=== PATIENT | female | born 1935 | race Caucasian/White ===

== ENCOUNTER 2016-09-22 16:22 | Inpatient (IN) | payer MEDICARE, BC ==
[2016-09-22] VITALS (9 sets, daily range): BP systolic 36–82; BP diastolic 24–71; PULSE 101–150; RESP 14–34; Wt 50.0 kg
[~2016-09-22] VITALS: Wt 50.0 kg
[2016-09-22] MEDS ORDERED: NITROGLYCERIN 2% 1 GM OINT PKT TD STA (16:34)
[2016-09-22 16:55] LABS: ADD SCAN DIFF NO
[2016-09-22] MEDS ORDERED: ASPIRIN 300 MG SUPP PR ONE (17:00)
[2016-09-22] MEDS ORDERED: NITROGLYCERIN (SL) 0.4 MG TAB SL PRN (17:00)
[2016-09-22] MEDS ORDERED: NITROGLYCERIN (IC) 100 MCG/ML INJ ONE (17:08)
[2016-09-22] MEDS ORDERED: IODIXANOL LOCM 100 ML BTL ONE ×2 (17:08→20:23)
[2016-09-22] MEDS ORDERED: VERAPAMIL 5 MG INJ ONE (17:08)
[2016-09-22] MEDS ORDERED: HEPARIN 1000 UNITS/ML 10 ML INJ ONE (17:08)
[2016-09-22] MEDS ORDERED: LIDOCAINE 1% (MDV) 20 ML INJ ONE (17:08)
[2016-09-22 17:09] LABS: HEMATOCRIT 35.6 % (37.0-47.0); HEMOGLOBIN 12.2 g/dl (12.0-16.0); MEAN CORPUSCULAR HEMOGLOBIN 31.4 pg (29.0-33.0); MEAN CORPUSCULAR HGB CONC 34.3 g/dl (32.0-37.0); MEAN CORPUSCULAR VOLUME 91.8 fl (82.0-101.0); MEAN PLATELET VOLUME 11.5 fl (7.4-10.4); PLATELET COUNT 310 10^3/UL (140-415); RED BLOOD COUNT 3.88 10^6/ul (4.20-5.40); RED CELL DISTRIBUTION WIDTH 13.3 % (11.5-14.5); WHITE BLOOD COUNT 16.4 10^3/ul (4.8-10.8)
--- NOTE | 2016-09-22 17:13 | RADRPT ---
PROCEDURE: XR Chest. CLINICAL INDICATION: Chest pain. Code STEMI. TECHNIQUE: Single frontal view. COMPARISON: None. FINDINGS: The lungs are clear. The heart size is normal. There is calcification in the aorta consistent with atherosclerosis. There is no pleural effusion. There is no pneumothorax. IMPRESSION: 1. Atherosclerosis. 2. Otherwise normal chest radiograph. RPTAT: QQ .Gael Wesley MD, MD Date Time Electronically viewed and signed by .Gael Wesley MD, MD on 09/22/2016 17:13 .R/
[2016-09-22 17:14] LABS: CALCIUM 9.1 mg/dl (8.4-10.2); CREATININE 0.91 mg/dl (0.44-1.00); INR 1.06; PARTIAL THROMBOPLASTIN TIME 21.1 Sec (25.0-35.0); POTASSIUM 4.7 mmol/L (3.5-5.1); PROTIME 13.8 Sec (12.2-14.2); PT RATIO 1.1
[2016-09-22] MEDS ORDERED: FENTAnyl 50 MCG/ML VIAL ONE (17:20)
[2016-09-22] MEDS ORDERED: MIDAZOLAM 1 MG/ML 2 ML INJ ONE (17:20)
[2016-09-22] MEDS ORDERED: BISACODYL 10 MG SUPP PR PRN (17:30)
[2016-09-22] MEDS ORDERED: HYDROCODONE/APAP (5/325) TAB PO PRN (17:30)
[2016-09-22] MEDS ORDERED: NACL 0.9% 3 ML SYG IV SCH (17:30)
[2016-09-22] MEDS ORDERED: DOCUSATE SODIUM 100 MG CAP PO PRN (17:30)
[2016-09-22] MEDS ORDERED: ACETAMINOPHEN 325 MG TAB PO PRN (17:30)
[2016-09-22 17:33] LABS: TROPONIN-I 4.7 ng/ml (0.00-0.12)
--- NOTE | 2016-09-22 18:18 | ERA ---
ER Documentation Chief Complaint Date/Time DATE: 09/22/16 TIME: 18:12 Chief Complaint weak, sent by pmd for abn ekg HPI Patient is an 81-year-old female with no medical problems per family who presents with chest pain and weakness. The patient was seen by her mother Dr. Gonzalez in the office who did an EKG that was concerning and the patient was sent to the emergency department. The patient was brought in by the family member and not by ambulance. The patient is complaining of chest pain and nausea. The symptoms started on Tuesday. The pain was coming and going. The patient has not received aspirin yet today. The patient's primary doctor is Dr. Combs. ROS All systems reviewed and are negative except as per history of present illness. Allergies Allergies: Coded Allergies: No Known Allergies (Verified Allergy, Unknown, 09/22/16) PMhx/Soc Medical and Surgical Hx: pt denies Surgical Hx Hx Miscellaneous Medical Probl: Yes (ATAXIA ) Hx Alcohol Use: No Hx Substance Use: No Hx Tobacco Use: No Smoking Status: Never smoker FmHx Family History: No coronary disease Physical Exam Vitals Vital Signs Date Time Temp Pulse Resp B/P Pulse Ox O2 Delivery O2 Flow Rate FiO2 09/22/16 16:33 97.0 110 20 99/57 96 Physical Exam Const: Moderate distress Head: Atraumatic Eyes: Normal Conjunctiva ENT: Normal External Ears, Nose and Mouth. Neck: Full range of motion..~ No meningismus. Resp: Clear to auscultation bilaterally Cardio: Regular rate and rhythm, no murmurs Abd: Soft, non tender, non distended. Normal bowel sounds Skin: Pale skin Back: No midline or flank tenderness Ext: No cyanosis, or edema Neur: Awake but confused Result Diagram: 09/22/16 1640 09/22/16 1640 Results 24 hrs Laboratory Tests Test 09/22/16 16:40 White Blood Count 16.410^3/ul Red Blood Count 3.8810^6/ul Hemoglobin 12.2g/dl Hematocrit 35.6% Mean Corpuscular Volume 91.8fl Mean Corpuscular Hemoglobin 31.4pg Mean Corpuscular Hemoglobin Concent 34.3g/dl Red Cell Distribution Width 13.3% Platelet Count 75481^3/UL Mean Platelet Volume 11.5fl Prothrombin Time 13.8Sec Prothrombin Time Ratio 1.1 INR International Normalized Ratio 1.06 Activated Partial Thromboplast Time 21.1Sec Sodium Level 135mmol/L Potassium Level 4.7mmol/L Chloride Level 106mmol/L Carbon Dioxide Level 18mmol/L Anion Gap 16 Blood Urea Nitrogen 18mg/dl Creatinine 0.91mg/dl Glucose Level 298mg/dl Calcium Level 9.1mg/dl Troponin I 4.700ng/ml Current Medications Medications (Trade) Dose Ordered Sig/Jose Route PRN Reason Start Time Stop Time Status Last Admin Dose Admin Nitroglycerin (Nitroglycerin 2% Oint) 1 inch ONCE STAT TD 09/22/16 16:34 09/22/16 16:36 DC 09/22/16 16:48 Nitroglycerin (Nitroglycerin (Sl Tab) 0.4 Mg) 1 tab Q5M UP TO 3 DOSES PRN SL CHEST PAIN 09/22/16 17:00 Aspirin (Aspirin) 300 mg ONCE ONCE NC 09/22/16 17:00 09/22/16 17:01 DC 09/22/16 16:48 Heparin Sodium (Porcine) (Heparin (1000 Units/ml)) 10,000 unit STK-MED ONCE .ROUTE 09/22/16 17:08 09/22/16 17:09 DC Lidocaine (Xylocaine 1% (Mdv) 20 ml) 20 ml STK-MED ONCE .ROUTE 09/22/16 17:08 09/22/16 17:09 DC Iodixanol 100 ml 100 ml STK-MED ONCE .ROUTE 09/22/16 17:08 09/22/16 17:09 DC Heparin Sodium/ Sodium Chloride (Heparin 1000 Units/NS (A-Line)) 1,500 ml @ ud STK-MED ONCE .ROUTE 09/22/16 17:08 09/22/16 17:09 DC Verapamil HCl (Verapamil) 5 mg STK-MED ONCE .ROUTE 09/22/16 17:08 09/22/16 17:09 DC Nitroglycerin (Nitroglycerin (Intracoronary)) 1,000 mcg STK-MED ONCE .ROUTE 09/22/16 17:08 09/22/16 17:09 DC Procedures/MDM EKG read by me: Rate/Rhythm: Sinus tachycardia at a rate of 108 Intervals: Normal Impression: Sinus tachycardia with ST elevations in the anterior leads V2 and V3 concerning for acute STEMI Chest x-ray negative for pneumonia or pneumothorax per radiology. Patient is an 81-year-old female presents with what appears to be an acute STEMI. I reviewed EKGs from April and from today from the office and the EKG done today in the office was concerning for acute STEMI with tombstones in the anterior leads. EKG in the emergency department here done at [address] elevations in leads V2 and V3 concerning for STEMI. I I called a code STEMI at 1634 immediately. I spoke with Dr. Carrillo the archeology professor radiation therapy technician at 1642 and we agreed that going to the cardiac Knockout Machine Operator was the best plan. The patient went to the cardiac Knockout Machine Operator at 1650. Aspirin was given per rectum given the patient's confused mental status. I spoke with Dr. Combs the patient' s primary doctor for admission to the intensive care unit following cardiac catheterization. I doubt pneumonia, pneumothorax, pulmonary embolism, or aortic dissection. Critical Care: Time: 35 minutes excluding all billable procedures. Treatments/Evaluations: Close monitoring and treatment of unstable vital signs, cardiorespiratory, and neurologic status, while maintaining tight balance of fluid, respiratory, and cardiac interventions. Departure Diagnosis: Primary Impression: STEMI (ST elevation myocardial infarction) Qualified Code: I21.3 - ST elevation myocardial infarction (STEMI), unspecified artery Additional Impression: Acute weakness Condition: Critical TANIA ARTEAGA MD Sep 22, 2016 18:18
[2016-09-22 18:37] LABS: LYMPHOCYTES # 1.5 10^3/ul (0.8-2.9); MONOCYTE # 0.3 10^3/ul (0.3-0.9); NEUTROPHIL # 14.6 10^3/ul (1.6-7.5)
[2016-09-22 18:39] LABS: BURR CELLS 2+
[2016-09-22] MEDS ORDERED: niCARdipine 25 MG INJ ONE (18:51)
[2016-09-22] MEDS ORDERED: TICAGRELOR 90 MG TABLET ONE (19:06)
--- NOTE | 2016-09-22 19:21 | CONS ---
Date/Time of Note Date/Time of Note DATE: 09/22/16 TIME: 19:10 Assessment/Plan Assessment/Plan Chief Complaint/Hosp Course 81 yo with STEMI Problems: Additional Assessment/Plan Impression: STEMI of anterior wall history of hypertension and ataxia Recommendations: ICU care, probable d/c on Tuesday am Echo in am Asa, Brilinta, atorvastatin Hold atenolol for now and will give metoprolol as bp comes up for post mi heart rate control Lifestyle recommendations including healthy diet and mobilizing more will be given once patient more awake tomorrow Consultation Date/Type/Reason Admit Date/Time 09/22/2016 Date of Consultation: Sep 22, 2016 Type of Consultation: cardiology Reason for Consultation STEMI Referring Provider: TANIA ARTEAGA MD Hx of Present Illness 81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 EKG in the ER demonstrated ST elevations in V2-V6, depression in AVR, patient brought emergently to the cardiac catheterization laboratory where she was found to have a completely occluded LAD in the proximal portion, underwent successful balloon angioplasty and placement of a Synergy 2.75x20 mm stent. At the conclusion of the procedure she was pain-free. Course of the procedure complicated by extremely difficult access, due to small vessels. Constitutional: improved, no complaints Eyes: no complaints ENT: other (hoarse voice) Respiratory: no complaints Cardiovascular: chest pain Gastrointestinal: no complaints Genitourinary: no complaints Musculoskeletal: no complaints Skin: no complaints Neurologic: other (chronic ataxia) Endocrine: no complaints Psychological: nl mood/affect, no complaints Past Medical History Medical History: hypertension, other (ataxia) Past Surgical History Past Surgical Hx: no surgical history Family History Significant Family History: no pertinent family hx (negative for premature cad) Social History Alcohol Use: none Smoking Status: Never smoker Exam/Review of Systems Vital Signs Vitals Vital Signs Date Time Temp Pulse Resp B/P Pulse Ox O2 Delivery O2 Flow Rate FiO2 09/22/16 16:33 97.0 110 20 99/57 96 Exam Constitutional: alert, oriented, well developed Psych: nl mood/affect, no complaints Head: atraumatic, normocephalic Eyes: EOMI, PERRL, nl conjunctiva, nl lids, nl sclera ENMT: nl external ears & nose, nl lips & teeth, nl nasal mucosa & septum Neck: No jvd Respiratory: clear to auscultation (anteriorly), normal air movement Cardiovascular: nl pulses, regular rate and rhythm Gastrointestinal: nl liver, spleen, non-tender, soft Musculoskeletal: nl extremities to inspection Extremities: No normal pulses (diminished femoral pulses and radial pulses) Neurological: nl mental status, nl strength, No nl speech (soft muffled speech) Skin: nl turgor, No rash or lesions Results Result Diagram: 09/22/16 1640 09/22/16 1640 Results 24 hrs Laboratory Tests Test 09/22/16 16:40 White Blood Count 16.4 H Red Blood Count 3.88 L Hemoglobin 12.2 Hematocrit 35.6 L Mean Corpuscular Volume 91.8 Mean Corpuscular Hemoglobin 31.4 Mean Corpuscular Hemoglobin Concent 34.3 Red Cell Distribution Width 13.3 Platelet Count 310 Mean Platelet Volume 11.5 H Neutrophils % 89.0 H Lymphocytes % 9.0 L Monocytes % 2.0 Neutrophils # 14.6 H Lymphocytes # 1.5 Monocytes # 0.3 Prothrombin Time 13.8 Prothrombin Time Ratio 1.1 INR International Normalized Ratio 1.06 Activated Partial Thromboplast Time 21.1 L Sodium Level 135 Potassium Level 4.7 Chloride Level 106 Carbon Dioxide Level 18 L Anion Gap 16 Blood Urea Nitrogen 18 Creatinine 0.91 Glucose Level 298 H Calcium Level 9.1 Troponin I 4.700 *H Medications Medications Current Medications Calcium Carbonate (Tums) 500 mg QID PO ; Start 09/22/16 at 21:00 Aspirin (Aspirin) 81 mg DAILY PO ; Start 09/24/16 at 09:00 Clopidogrel Bisulfate (plaVIX) 75 mg DAILY PO ; Start 09/24/16 at 09:00 Acetaminophen (Tylenol Tab) 650 mg Q6H PRN PO PAIN LEVEL 1-3 OR FEVER; Start at 17:30 Acetaminophen/ Hydrocodone Bitart ([place] (5/325)) 1 tab Q6H PRN PO MODERATE PAIN LEVEL 4-6; Start 09/22/16 at 17:30 Docusate Sodium (Colace) 100 mg Q12H PRN PO CONSTIPATION; Start 09/22/16 at 17: 30 Bisacodyl (Dulcolax Supp) 10 mg DAILY PRN NC CONSTIPATION; Start 09/22/16 at 17 :30 Famotidine (Pepcid) 20 mg Q12 PO ; Start 09/22/16 at 21:00 Methimazole (Tapazole) 5 mg QAM PO ; Start 09/23/16 at 09:00 Escitalopram Oxalate (Lexapro) 10 mg QAM PO ; Start 09/23/16 at 09:00 Acetylcysteine (Nac) 1,200 mg BID PO ; Start 09/22/16 at 21:00 Procedures Procedures See cath report for full details, but LAD completely occluded proximally, at the end of the case SHAW III flow and 2.75x20 mm Synergy stent placed. RADHA MADRID Sep 22, 2016 19:20
--- NOTE | 2016-09-22 19:28 | EN ---
Date/Time of Note Date/Time of Note DATE: 09/22/16 TIME: 19:21 Event Note Cardiology Cardiology Event Note Cardiac Catheterization Report Date of Procedure: September 22, 2016 Pre-Procedure Dx: STEMI of the anterior wall Post-Procedure Dx: STEMI due to occlusion of proximal LAD Procedures performed: Coronary angiography, left heart catheterization, angioplasty and stent placement to the proximal LAD Findings: Left main normal LAD is completely occluded after the takeoff of a first diagonal vessel. SHAW 0 flow. Lesion length 14 mm LCX with mild luminal irregularities, and one major OM vessel The right coronary artery is dominant with mild luminal irregularities Indications: Patient presented with chest pain, EKG showed ST elevations in anterior leads Informed consent obtained. Patient received sedation with versed and fentanyl. Access quite difficult, tried R and L radial, R and L femoral, ultimately using micropuncture accessed the L common femoral artery. A J wire was utilized to advance a JL4 and JR4 which engaged the LM and RCA. Images taken with injection of contrast. It was decided to intervene on the LAD. An FL 3.5 guide catheter was used. ACT drawn to ascertain that it was greater than 250, a total of 6000 u of heparin given. A Luge wire passed through the lesion, and a 1.5 x 12 mm balloon inflated within the lesion, followed by placement of a 2.75 x 20 mm Synergy drug-eluting stent. Nitroglycerin and cardene given intracoronary to improve distal flow. Images obtained including a wire out shot demonstrating good apposition of the stent and shaw 3 flow. All catheter exchanges done over a 260-cm J wire. At the end of the case, angiography performed through the sheath demonstrating that the sheath was in the left common femoral, and an angioseal was placed. Brilinta 180 mg was given, she received aspirin in the ER. Discussion: STEMI due to occlusion of the prox/mid LAD. Drug eluting stent placed. Plan is for admission, and likely discharge on Sunday 09/24. RADHA MADRID Sep 22, 2016 19:28
[2016-09-22] MEDS ORDERED: IOHEXOL 350MG/ML 50 ML BTL ONE (20:24)
[2016-09-22] MEDS ORDERED: ACETYLCYSTEINE 600 MG CAP PO SCH (21:00)
[2016-09-22] MEDS ORDERED: ATORVASTATIN 80 MG TAB PO SCH (21:00)
[2016-09-22] MEDS ORDERED: CALCIUM CARBONATE 500 MG CHEW TAB PO SCH (21:00)
[2016-09-22] MEDS ORDERED: FAMOTIDINE 20 MG TAB PO SCH (21:00)
[2016-09-22] MEDS ORDERED: PHENYLephrine 20MG IN 250 ML 250 ML ONE (21:23)
[2016-09-22] MEDS ORDERED: SOD CHLORIDE 0.9% 500 ML IV ONE ×2 (21:30→22:30)
[2016-09-22] MEDS ORDERED: PHENYLephrine 20MG IN 250 ML 250 ML IV SCH (21:30)
[2016-09-22] MEDS ORDERED: ZOLPIDEM 5 MG TAB PO PRN (22:30)
[2016-09-22] MEDS ORDERED: NORepinephrine 8MG/250 ML (PMX 250 ML ONE (22:53)
[2016-09-22 23:18] LABS: Allen Test ACCEPTAB; Arterial COHb 0.2 % (0.0-3.0); MODE MASK - NRB
[2016-09-22] MEDS ORDERED: FUROSEMIDE 40 MG INJ ONE (23:20)
[2016-09-22 23:35] LABS: AADO2 Arterial 434.7 mmHg (7.0-24.0); Arterial Base Excess -17.4 mmol/L (-3.0-3); Arterial Fraction of Oxyhgb 98.5 % (93.0-99.0); Arterial HCO3 7.5 mmol/L (22.0-26.0); Arterial MetHb 0.3 % (0.0-1.5); Arterial Total Hemglobin 11.7 g/dl (12.0-18.0)
[2016-09-23] VITALS (12 sets, daily range): BP systolic 30–82; BP diastolic 12–61; PULSE 22–116; RESP 20–30
[2016-09-23] MEDS ORDERED: FUROSEMIDE 40 MG INJ IV ONE
[2016-09-23] MEDS ORDERED: VASOPRESSIN 60 UNIT in DEXTROSE 5% 57 ML IV SCH ×2
[2016-09-23 00:18] LABS: TROPONIN-I 91.3 ng/ml (0.00-0.12)
[2016-09-23] MEDS ORDERED: NA BICARBONATE 8.4% 50 ML SYG ONE ×2 (00:18)
[2016-09-23] MEDS ORDERED: PHENYLephrine 160 MG in DEXTROSE 5% 484 ML IV SCH (00:30)
[2016-09-23] MEDS ORDERED: NORepinephrine 32 MG in DEXTROSE 5% 218 ML IV SCH (00:30)
[2016-09-23 01:21] LABS: AADO2 Arterial 228.9 mmHg (7.0-24.0); Allen Test ACCEPTAB; Arterial Base Excess -17.9 mmol/L (-3.0-3); Arterial COHb 0.1 % (0.0-3.0); Arterial Fraction of Oxyhgb 98.7 % (93.0-99.0); Arterial HCO3 7.7 mmol/L (22.0-26.0); Arterial MetHb 0.3 % (0.0-1.5); Arterial Total Hemglobin 11.2 g/dl (12.0-18.0); Blood Gas Low PEEP Setting 0 cmH2O; MODE VENT - AC
[2016-09-23] MEDS ORDERED: SODIUM BICARBONATE (IV ADD) 100 MEQ in DEXTROSE 5% 900 ML IV SCH (01:30)
[2016-09-23] MEDS ORDERED: NA BICARBONATE 8.4% 50 ML SYG IV ONE ×2 (02:00)
--- NOTE | 2016-09-23 02:39 | EN ---
Date/Time of Note Date/Time of Note DATE: 09/23/16 TIME: 02:29 ER Progress Note NICU called to the patient who went to the Hydraulic Chair Assembler this morning for a STEMI and had a complete LAD with stent placement is having hypotension even after being on 2 separate blood pressure support medications. He also said that she is having some difficulty breathing with the bad ABG and the position he was admitted the patient is requesting intubation and central line. On arrival the patient has some mild to moderate increased work of breathing. She is awake but somewhat conscious with tangential speech. Blood pressure is 56/31 Const: Well-developed, well-nourished Head: Atraumatic, normocephalic Eyes: Normal Conjunctiva, PERRLA, EOMI, normal sclera, no nystagmus ENT: Normal External Ears, Nose and Mouth, moist mucus membranes. Neck: Full range of motion. No meningismus, no lymphadenopathy. Resp: [Mild to moderate increased work of breathing with diffuse rhonchi Cardio: Tachycardia heart rate 127, no murmurs, S1 S2 present Abd: Soft, non tender x 4, non distended Skin: No petechiae or rashes, no ecchymosis , no maculopapular rash Back: Not examined Ext: [No cyanosis, or edema, normal inspection, Neur: Awake some unconscious moves all 4, sensation intact x 4, no focal findings, Psych: [Unable to obtain Endotracheal Intubation by me: Pre assessment performed. See preceding note for details. Pre-oxygenation performed with 100% oxygen RSI: Performed w/o complication or hypoxic events. Medications as ordered. Blade: Mac 4 ET Tube: 7.0 cm Depth: 22 cm at the lip Intubation confirmed by colorimetric CO2, equal breath sounds, quiet over the stomach. After etomidate was given and then succinylcholine was given. The family had come in and requested the patient not be intubated. I informed him that the patient had just received succinylcholine and they put informing to go ahead and proceed with intubation Central Line Placement by me: Patient consented, sterilely draped, full prep, gown, glove, mask, time out performed. Anesthesia: None Location: Right femoral Device: Multiple lumen Technique: Seldinger technique Results: Multiple attempts were made to establish a central line in the right femoral groin however there is no success on finding the vein. Family informing that the route sales associate had a very difficult time finding the femoral artery even to do the cardiac cath today. [ED Ultrasound: Unable to distinctly find the femoral vein Central Line Placement by me#2: Patient consented, sterilely draped, full prep, gown, glove, mask, time out performed. Anesthesia: None Location: Left IJ Device: Multiple lumen Technique: Seldinger technique. Results: Multiple attempts were made in the left IJ. There was a flash of venous blood on several occasions however the guidewire would not thread into the vein. The patient is likely to clamp down from being hypotensive [ED Ultrasound: Used to find the internal jugular vein I had the nurse start a third peripheral line and having the third blood pressure medication. The patient has 3 peripheral IVs with each a blood pressure medication hanging. Patient's blood pressure is now 86/[address]Eghbalia jean-baptiste vascular surgery and told him of the situation. He said he is happy to come and place a central line. Appreciate his gracious support. Critical Care Time: 55 minutes Treatments/Evaluations: Close monitoring and treatment of unstable vital signs, cardiorespiratory, and neurologic status, while maintaining tight balance of fluid, respiratory, and cardiac interventions. This time includes discussing the case with the patient and the patient's family. This time does not include all procedures stated elsewhere in this record. This time also includes reviewing old records, labs and radiological studies. This time includes examining and re-examining the patient. Additionally, this time also includes arranging care with admitting and consulting physicians. Diagnosis: Hypotension, respiratory failure Condition: Critical The family has made the patient a DNR YESSENIA LOMELI DO Sep 23, 2016 02:39
--- NOTE | 2016-09-23 02:45 | OPR ---
Date/Time of Note Date/Time of Note DATE: 09/23/16 TIME: 02:42 Operative Report Free Text/Dictation DATE OF OPERATION: 09/23/2016 SURGEON: Philip Gomez MD PREOPERATIVE DIAGNOSIS: shock and VT POSTOPERATIVE DIAGNOSIS: same ANESTHESIA: Local BLOOD LOSS: minimal COMPLICATIONS: None. ACCESS: Right common femoral vein INDICATIONS: This is a 81 year-old female with VT and shock requiring resuscitation. Patient and family have been informed of the alternatives, risks , and benefits. Risks including but not limited to bleeding, thrombosis, embolization, myocardial infarction, , device malfunction, infection, pneumothorax, nephrotoxicity and patient has agreed to proceed. PROCEDURE: 1. Ultrasound guided access of right common femoral vein 2. Emergent Right common femoral vein central catheter placement 3. Emergent left radial artery arterial catheter placement DESCRIPTION: The patient was in supine position in her ICU bed. Bed was placed in slight Trendelenburg position and the groin was prepped and draped with sterile technique. The central catheter was flushed with heparin to ensure function of each port. Landmarks were identified and the skin entry site was chosen using ultrasound guidance. The skin And subcutaneous tissue were anesthetized with 1% lidocaine. The vein was then located with a needle with a 10 mL syringe using ultrasound guidance. The needle was then directed towards the vein and was entered. The needle position was secured and syringe was removed. The hub was occluded to prevent venous air embolus. The guidewire was passed easily and the needle was removed while the wire was held in place. A small incision was then made at the point of the wire entry. The dilator was placed over the wire and the tract gently dilated. The catheter was fed over the wire, ensuring the wire exited from the port before advancing the catheter. The catheter was inserted to the desired depth and the wire removed. Each port was aspirated to ensure adequate blood flow and then flushed with heparinized saline solution. The catheter was secured in place with a 2-0 nylon suture and a sterile dressing was applied. The patient tolerated the procedure well and was in stable condition. All instrument, sponge and needle counts were correct 2. PHILIP GOMEZ MD Sep 23, 2016 02:45
--- NOTE | 2016-09-23 02:49 | RADRPT ---
PROCEDURE: XR Chest. CLINICAL INDICATION: Post intubation. TECHNIQUE: Single frontal chest x-ray. COMPARISON: 09/22/2016 FINDINGS: Endotracheal tube tip is at the level of the clavicles, 2.2 cm above deborah. Heart is enlarged. Th ere is increased bibasilar atelectasis.. There is moderate hypoventilation. There is no congestive heart failure.. . There is no pleural effusion. There is no pneumothorax. The osseous structures are unremarkable. IMPRESSION: Endotracheal tube tip at the level of deborah. Slight increase in bibasilar atelectasis. Otherwise no change. RPTAT: HMVK .Russell Cortez MD, MD Date Time Electronically viewed and signed by .Russell Cortez MD, on 09/23/2016 02:49 .K/
[2016-09-23] MEDS ORDERED: LACTATED RINGER'S 250 ML IV ONE (03:30)
[2016-09-23] MEDS ORDERED: DOPamine 1,600 MG in DEXTROSE 5% 210 ML IV SCH (03:30)
[2016-09-23] MEDS ORDERED: DOPamine-D5W 1.6 MG/ML 250 ML ONE (03:47)
--- NOTE | 2016-09-23 04:25 | EN ---
Date/Time of Note Date/Time of Note DATE: 09/23/16 TIME: 04:19 Event Note Medicine Medicine Event Note Pronouncement Note Patient seen and examined at the bedside. Patient non-responsive to vebral commands. Patient non-responsive to noxious tactile stimuli. Patient non- responsive to vigorous sternal rub. Pupils fixed and non reactive to light bilaterally. Asystole observed on telemetry monitoring at 4:00AM. Patient time of approximately at 4:00AM. Family present at the bedside. Primary care physician aware. DANA DOWELL Sep 23, 2016 04:25
[2016-09-23] MEDS ORDERED: PHENYLephrine 40 MG in DEXTROSE 5% 496 ML IV SCH (07:00)
[2016-09-23] MEDS ORDERED: TICAGRELOR 90 MG TABLET PO SCH (08:00)
[2016-09-23] MEDS ORDERED: ESCITALOPRAM 10 MG TAB PO SCH (09:00)
[2016-09-23] MEDS ORDERED: METHIMAZOLE 5 MG TAB PO SCH (09:00)
--- NOTE | 2016-09-23 10:36 | RADRPT ---
Vent Rate: 100 bpm RR Interval: 0 msec [place] Interval: 134 msec QRS Duration: 76 msec QT Interval: 360 msec QTC Interval: 464 msec P-R-T [place]: 0 - 0 - -51 degrees Normal sinus rhythm Low voltage QRS Anterolateral infarct , possibly acute ACUTE FL Abnormal ECG Electronically Signed By: Christopher Wang [id number]
--- NOTE | 2016-09-23 16:01 | DES ---
Date/Time of Note Date/Time of Note DATE: 09/23/16 TIME: 15:58 Discharge/ Summary Admission/Discharge Info Admit Date/Time Sep 22, 2016 at 20:08 Discharge Date/Time Sep 23, 2016 at 04:00 Final Diagnosis Acute coronary syndrome/STEMI; hypertension; hyperlipidemia; primary cerebellar ataxia; osteoporosis; history of multiple vertebral compression fractures; Graves' disease Preliminary Cause of Acute coronary syndromes/STEMI; cardiopulmonary arrest Hx of Present Illness Otherwise healthy 81-year-old female with no primary cardiac history. She has risk factors of hypertension hyperlipidemia remote history of smoking. No family history no diabetes. No hyperuricemia. Roughly 48 hours prior to admission she had some chest pains which abated. She had lunch with her daughter who is a physician on our staff. Approximately an hour after that she developed more chest pain and came to physician's office. An EKG was there are demonstrate STEMI and she was transported immediately to the emergency room for code STEMI was called. She was taken from the emergency room directly to the cardiac [employer] and had cardiac intervention. Hospital Course 81 yo with STEMI; in the cardiac catheterization lab she had angiography that demonstrated proximal LAD lesion. She had markedly positive troponins at 4 from the emergency room. She had successful balloon angioplasty with stenting. Post procedure she was taken to intensive care unit for aggressive monitoring. Follow-up troponin level was more than 10 times higher. Approximately 6 hours after procedure the patient developed hypotension respiratory distress. She required intubation and multiple pressors. Despite this she at roughly 4 AM. At that time the family had made her DNR. Pending Labs/Cultures Laboratory Tests Test 09/22/16 16:40 09/22/16 18:59 09/22/16 23:00 09/22/16 23:07 White Blood Count 16.410^3/ul (4.8-10.8) Red Blood Count 3.8810^6/ul (4.20-5.40) Hemoglobin 12.2g/dl (12.0-16.0) Hematocrit 35.6% (37.0-47.0) Mean Corpuscular Volume 91.8fl (82.0-101.0) Mean Corpuscular Hemoglobin 31.4pg (29.0-33.0) Mean Corpuscular Hemoglobin Concent 34.3g/dl (32.0-37.0) Red Cell Distribution Width 13.3% (11.5-14.5) Platelet Count 29551^3/UL (140-415) Mean Platelet Volume 11.5fl (7.4-10.4) Neutrophils % 89.0% (39.0-77.0) Lymphocytes % 9.0% (15.0-51.0) Monocytes % 2.0% (0.0-11.0) Neutrophils # 14.610^3/ul (1.6-7.5) Lymphocytes # 1.510^3/ul (0.8-2.9) Monocytes # 0.310^3/ul (0.3-0.9) Prothrombin Time 13.8Sec (12.2-14.2) Prothrombin Time Ratio 1.1 INR International Normalized Ratio 1.06 Activated Partial Thromboplast Time 21.1Sec (25.0-35.0) Sodium Level 135mmol/L (135-144) Potassium Level 4.7mmol/L (3.5-5.1) Chloride Level 106mmol/L (97-110) Carbon Dioxide Level 18mmol/L (21-31) Anion Gap 16 (8-16) Blood Urea Nitrogen 18mg/dl (7-20) Creatinine 0.91mg/dl (0.44-1.00) Glucose Level 298mg/dl (70-220) Calcium Level 9.1mg/dl (8.4-10.2) Troponin I 4.700ng/ml (0.00-0.12) 5.530ng/ml (0.00-0.12) 91.300ng/ml (0.00-0.12) Creatine Kinase 1561IU/L (23-200) Creatine Kinase Index 12.2 Creatinine Kinase MB (Mass) 191.00ng/ml (0.0-2.4) Blood Gas Specimen Source Blood arterial Arterial Blood Date Drawn 09/22/2016 11:20:29 PM Arterial Blood pH (Temp corrected) 7.255 (7.350-7.450) Arterial Blood pCO2 (Temp correct) 17.4mmhg (35-45) Arterial Blood pO2 (Temp corrected) 260.9mmHG (80-90.0) Arterial Blood HCO3 7.5mmol/L (22.0-26.0) Arterial Blood Base Excess -17.4mmol/L (-3.0-3) Arterial Blood Oxygen Saturation 99.0mmHG (95.0-100.0) Tano Test ACCEPTAB Arterial Blood Gas Puncture Site Left Radial Arterial Blood Carboxyhemoglobin 0.2% (0.0-3.0) Arterial Blood Methemoglobin 0.3% (0.0-1.5) Blood Gas A-a O2 Differential 434.7mmHg (7.0-24.0) Oxyhemoglobin Percent 98.5% (93.0-99.0) Total Hemoglobin 11.7g/dl (12.0-18.0) Blood Gas Temperature 37.0C Blood Gas Actual Respiration Rate 28 Blood Gas Modality MASK - NRB FiO2 100.0% Blood Gas Critical Value Read Back ABEL RN Blood Gas Notified Whom MA Blood Gas Notified Time 09/22/2016 11:35:20 PM Test 09/23/16 01:00 Blood Gas Specimen Source Blood arterial Arterial Blood Date Drawn 09/23/2016 1:10:16 AM Arterial Blood pH (Temp corrected) 7.226 (7.350-7.450) Arterial Blood pCO2 (Temp correct) 19.0mmhg (35-45) Arterial Blood pO2 (Temp corrected) 465.1mmHG (80-90.0) Arterial Blood HCO3 7.7mmol/L (22.0-26.0) Arterial Blood Base Excess -17.9mmol/L (-3.0-3) Arterial Blood Oxygen Saturation 99.1mmHG (95.0-100.0) Tano Test ACCEPTAB Arterial Blood Gas Puncture Site Left Radial Arterial Blood Carboxyhemoglobin 0.1% (0.0-3.0) Arterial Blood Methemoglobin 0.3% (0.0-1.5) Blood Gas A-a O2 Differential 228.9mmHg (7.0-24.0) Oxyhemoglobin Percent 98.7% (93.0-99.0) Total Hemoglobin 11.2g/dl (12.0-18.0) Blood Gas Temperature 37.0C Blood Gas Respiration Rate 14.0 Blood Gas Actual Respiration Rate 28 Blood Gas Modality VENT - AC FiO2 100.0% Blood Gas Tidal Volume 500.0mL Blood Gas Low PEEP Setting 0cmH2O Blood Gas Critical Value Read Back AALEX RN Blood Gas Notified Whom MA Blood Gas Notified Time 09/23/2016 1:21:12 AM Microbiology Date/Time Source Procedure Growth Status 09/22/16 21:00 Nares MRSA Screen - Preliminary Screening in process Resulted BRIAN JOHNSON MD Sep 23, 2016 16:01
--- NOTE | 2016-09-23 16:06 | HP ---
Date/Time of Note Date/Time of Note DATE: 09/23/16 TIME: 16:01 Assessment/Plan VTE Prophylaxis VTE Prophylaxis Intervention: heparin Lines/Catheters IV Catheter Type (from [facility], [place]): A Line Urinary Cath still in place: Yes Reason Cath still needed: other (indicate) (Immediately post catheterization) Assessment/Plan Chief Complaint/Hosp Course 81 yo with STEMI; in the cardiac catheterization lab she had angiography that demonstrated proximal LAD lesion. She had markedly positive troponins at 4 from the emergency room. She had successful balloon angioplasty with stenting. Post procedure she was taken to intensive care unit for aggressive monitoring. Follow-up troponin level was more than 10 times higher. Approximately 6 hours after procedure the patient developed hypotension respiratory distress. She required intubation and multiple pressors. Despite this she at roughly 4 AM. At that time the family had made her DNR. Problems: (1) STEMI (ST elevation myocardial infarction) Status: Acute Comment: She has had angioplasty and stenting. She will be transferred to the intensive care unit and observe closely. Qualifiers: Involved coronary artery: LAD coronary artery Qualified Code: I21.02 - ST elevation myocardial infarction involving left anterior descending (LAD) coronary artery (2) Graves' disease without crisis Status: Chronic Comment: Well-controlled and euthyroid (3) Osteoporosis Status: Chronic Comment: Noted and stable. She has been through several years of bisphosphonate therapy Qualifiers: Osteoporosis type: age-related Presence of current pathological fracture: without current pathological fracture Qualified Code: M81.0 - Age-related osteoporosis without current pathological fracture (4) Cerebellar ataxia Status: Chronic Comment: Noted her present condition is what her baseline is (5) Essential hypertension Status: Chronic Comment: Continue appropriate therapy (6) Hyperlipidemia Status: Chronic Comment: Continue statin therapy Qualifiers: Hyperlipidemia type: pure hypercholesterolemia Qualified Code: E78.00 - Pure hypercholesterolemia HPI/ROS Admit Date/Time Admit Date/Time 09/22/2016 Hx of Present Illness Otherwise healthy 81-year-old female with no primary cardiac history. She has risk factors of hypertension hyperlipidemia remote history of smoking. No family history no diabetes. No hyperuricemia. Roughly 48 hours prior to admission she had some chest pains which abated. She had lunch with her daughter who is a physician on our staff. Approximately an hour after that she developed more chest pain and came to physician's office. An EKG was there are demonstrate STEMI and she was transported immediately to the emergency room for code STEMI was called. She was taken from the emergency room directly to the cardiac Salesperson [employer] and had cardiac intervention. ROS Eyes: no complaints ENT: other (hoarse voice) Respiratory: no complaints Cardiovascular: chest pain Gastrointestinal: no complaints Genitourinary: no complaints Musculoskeletal: no complaints Skin: no complaints Neurologic: other (chronic ataxia) Psychological: nl mood/affect, no complaints PMH/Family/Social Past Medical History Osteoporosis with multiple vertebral compression fractures; primary cerebellar ataxia; Graves' disease; hypertension; hyperlipidemia; dysthymia; allergic rhinitis; colonic polyposis; history of intravaginal radiation; overactive bladder; Medical History: hypertension, other (ataxia) Past Surgical History Status post appendectomy; status post SPARKLE with BSO; status post anal fissure repair; status post tonsillectomy and adenoidectomy; status post ORIF of a proximal left femur fracture; status post fall with orbital fracture status post ORIF of the left tibial plateau fracture Family History Significant Family History: hypertension, other (Stroke) Social History Born [facility] and raise she has high school education she is and had been living alone she had a significant other who passed 10 days ago she is a retired professional research assistant Alcohol Use: none Smoking Status: Never smoker Drug Use: none Exam/Review of Systems Vital Signs Vitals Vital Signs Date Time Temp Pulse Resp B/P Pulse Ox O2 Delivery O2 Flow Rate FiO2 09/23/16 03:45 22 30/12 40 Nasal Cannula 09/23/16 03:30 20 09/23/16 03:02 50 09/22/16 20:30 98.0 2.0 Intake and Output 09/22/16 09/22/16 09/23/16 15:00 23:00 07:00 Intake Total 255 ml 900.08 ml Output Total 0 ml 150 ml Balance 255 ml 750.08 ml Exam Constitutional: alert, oriented Head: atraumatic, normocephalic Eyes: EOMI, nl conjunctiva, nl lids, nl sclera Neck: non-tender, supple Respiratory: clear to auscultation, normal air movement Cardiovascular: murmurs/extra sounds (She has a new murmur at the left upper sternal border), nl pulses, regular rate and rhythm Gastrointestinal: nl liver, spleen, non-tender, soft Musculoskeletal: nl extremities to inspection, nl gait and stance Labs Result Diagram: 09/22/16 1640 09/22/16 1640 BRIAN JOHNSON MD Sep 23, 2016 16:06
[2016-09-24] MEDS ORDERED: CLOPIDOGREL 75 MG TAB PO SCH (09:00)
[2016-09-24] MEDS ORDERED: ASPIRIN 81 MG TAB PO SCH (09:00)
== END 2016-09-23 04:00 | disposition expired | DRG 247 ==
LOC: E/R 16:22 → SDS 17:15 → CCL 17:15 → ICU 20:08
PROVIDERS: ADMIT Internal Medicine Interventional Cardiology; ATTEND Internal Medicine Interventional Cardiology
PROC: 4A023N7 Measurement of Cardiac Sampling and Pressure, Left Heart, Percutaneous Approach (ICD-10-PCS; 2016-09-22)
PROC: B2111ZZ Fluoroscopy of Multiple Coronary Arteries using Low Osmolar Contrast (ICD-10-PCS; 2016-09-22)
PROC: 027034Z Dilation of Coronary Artery, One Artery with Drug-eluting Intraluminal Device, Percutaneous Approach (ICD-10-PCS; principal; 2016-09-22 16:45)
PROC: 5A1935Z Respiratory Ventilation, Less than 24 Consecutive Hours (ICD-10-PCS; 2016-09-23)
PROC: 06HM33Z Insertion of Infusion Device into Right Femoral Vein, Percutaneous Approach (ICD-10-PCS; 2016-09-23)
PROC: B54BZZA Ultrasonography of Right Lower Extremity Veins, Guidance (ICD-10-PCS; 2016-09-23)
PROC: 03HC33Z Insertion of Infusion Device into Left Radial Artery, Percutaneous Approach (ICD-10-PCS; 2016-09-23)
PROC: 0BH17EZ Insertion of Endotracheal Airway into Trachea, Via Natural or Artificial Opening (ICD-10-PCS; 2016-09-23)
DX: I21.09 ST elevation (STEMI) myocardial infarction involving other coronary artery of anterior wall (principal); R57.8 Other shock; I95.9 Hypotension, unspecified; I25.82 Chronic total occlusion of coronary artery; R06.09 Other forms of dyspnea; E05.00 Thyrotoxicosis with diffuse goiter without thyrotoxic crisis or storm; G11.9 Hereditary ataxia, unspecified; E78.5 Hyperlipidemia, unspecified; I46.9 Cardiac arrest, cause unspecified; I10 Essential (primary) hypertension; F32.9 Major depressive disorder, single episode, unspecified; M81.0 Age-related osteoporosis without current pathological fracture; Z87.891 Personal history of nicotine dependence; Z66 Do not resuscitate
CPT/HCPCS: 31500; 36415; 36600; 71010; 80048; 82550; 82553; 82803; 84484; 85025; 85610; 85730; 87081; 93005; 94002; 94003; 94770; C1725; C1751; C1760; C1769; C1874; C1887; C1894; C9606; J1265; J1644; J1940; J2250; J2370; J3010; J7040; J7060; J7070; J7120; Q9967